=== PATIENT | male | born 1970 | race Hispanic/Latino ===

== ENCOUNTER 2021-06-06 02:04 | Emergency (ER) | payer BC ==
--- OUTSIDE RECORDS SUMMARY | 2021-06-06 02:07 | XMS REPORT | Continuity of Care Document ---
:1970 Author Organization [facility] t Address [address] [place] [address] Dr. Yo [address] [place] [id number] Care Team Providers Name Role Phone Unavailable Unavailable Unavailable Problems This patient has no known problems. Allergies, Adverse Reactions, Alerts This patient has no known allergies or adverse reactions. Medications This patient has no known medications. Procedures This patient has no known procedures. Results This patient has no known results.
[2021-06-06 02:52] LABS: Absolute Lymphocytes (CBC) 1.7 K/uL (0.7-4.9); Basophils % 0.6 % (0-1.3); Hematocrit 38.9 % (39.6-49.0); Lymphocytes % 27.8 % (15.3-44.8); MPV 9.5 fL (7.6-11.3); RBC Red Blood Cell Count 4.25 M/uL (4.33-5.43)
[2021-06-06 03:10] LABS: ALT/SGPT 39 U/L (12-78); AST/SGOT 19 U/L (15-37); Albumin 3.9 g/dL (3.4-5.0); Alkaline Phosphatase 67 U/L (45-117); BUN Blood Urea Nitrogen 18 mg/dL (7-18); Bicarbonate 28 mmol/L (21-32); Bilirubin Direct < 0.1 mg/dL (0-0.2); Bilirubin Total 0.4 mg/dL (0.2-1.0); Glucose Level 113 mg/dL (74-106); Lipase 130 U/L (73-393); Potassium 4.3 mmol/L (3.5-5.1); Protein, Total 7.7 g/dL (6.4-8.2); Sodium Level 143 mmol/L (136-145)
[2021-06-06] MEDS ORDERED: ONDANSETRON 4 MG/2 ML VIAL ONE (04:28)
[2021-06-06] MEDS ORDERED: MORPHINE 4 MG/ML SYR ONE (04:28)
[2021-06-06] MEDS ORDERED: NA CHLORIDE 0.9% 1,000 ML ONE (04:29)
--- NOTE | 2021-06-06 04:46 | EDPHYS ---
Physician Documentation [facility] Name: Kiko George Jr Age: 51 yrs Sex: Male : 1970 Arrival Date: 06/06/2021 Time: 02:08 Bed DX1 Private MD: ED Physician José Manuel Henderson HPI: 06/06 04:38 This 51 yrs old Male presents to ER via Ambulatory with complaints of pkl Epigastric Pain. 04:38 The patient presents with abdominal pain in the epigastric area, in the upper abdomen. pkl Onset: The symptoms/episode began/occurred just prior to arrival. The symptoms do not radiate. Associated signs and symptoms: none. The patient has not experienced similar symptoms in the past. Historical: - Allergies: 02:16 No Known Allergies; kg - Home Meds: 02:16 rosuvastatin 5 mg oral tab 1 tab once daily [Active]; kg - PMHx: 02:16 Hypercholesterolemia; kg - PSHx: 02:17 Appendectomy; kg - Immunization history:: Adult Immunizations not up to date, Client reports receiving the 2nd dose of the Covid vaccine, Date received: February 27, 2021 [facility] Client reports receiving the 1st dose of the Covid vaccine, February 05, 2021 [facility]. - Social history:: Smoking status: Patient denies any tobacco usage or history of. Patient uses alcohol, occasionally. ROS: 04:38 Eyes: Negative for injury, pain, redness, and discharge, ENT: Negative for injury, pkl pain, and discharge, Neck: Negative for injury, pain, and swelling, Cardiovascular: Negative for chest pain, palpitations, and edema, Respiratory: Negative for shortness of breath, cough, wheezing, and pleuritic chest pain. 04:38 Abdomen/GI: Positive for abdominal pain, of the epigastric area, right upper quadrant and left upper quadrant. 04:38 Back: Negative for acute changes. 04:38 : Negative for urinary symptoms. 04:38 MS/extremity: Negative for acute changes. 04:38 Skin: Negative for rash. 04:38 Neuro: Negative for altered mental status, loss of consciousness. Exam: 04:38 Head/Face: Normocephalic, atraumatic. Eyes: Pupils equal round and reactive to light, pkl extra-ocular motions intact. Lids and lashes normal. Conjunctiva and sclera are non-icteric and not injected. Cornea within normal limits. Periorbital areas with no swelling, redness, or edema. ENT: Nares patent. No nasal discharge, no septal abnormalities noted. Tympanic membranes are normal and external auditory canals are clear. Oropharynx with no redness, swelling, or masses, exudates, or evidence of obstruction, uvula midline. Mucous membranes moist. Neck: Trachea midline, no thyromegaly or masses palpated, and no cervical lymphadenopathy. Supple, full range of motion without nuchal rigidity, or vertebral point tenderness. No Meningismus. Chest/axilla: Normal chest wall appearance and motion. Nontender with no deformity. No lesions are appreciated. Cardiovascular: Regular rate and rhythm with a normal S1 and S2. No gallops, murmurs, or rubs. Normal PMI, no JVD. No pulse deficits. Respiratory: Lungs have equal breath sounds bilaterally, clear to auscultation and percussion. No rales, rhonchi or wheezes noted. No increased work of breathing, no retractions or nasal flaring. 04:38 Abdomen/GI: Bowel sounds: normal, Palpation: soft, mild abdominal tenderness, in the epigastric area, right upper quadrant and left upper quadrant. 04:38 Back: Exam negative for acute changes. 04:38 : Exam negative for acute changes. 04:38 Musculoskeletal/extremity: Exam is negative for acute changes. 04:38 Skin: Exam negative for rash. 04:38 Neuro: Orientation: is normal, Mentation: is normal, Cranial nerves: grossly normal, Motor: is normal. Vital Signs: 02:14 BP 150 / 89; Pulse 65; Resp 20; Temp 97.6(TE); Pulse Ox 99% on R/A; Weight 131.54 kg; kg Height 5 ft. 7 in. (170.18 cm); Pain 9/10; 05:04 BP 138 / 70; Pulse 60; Resp 19; Pulse Ox 98% ; ea 02:14 Body Mass Index 45.42 (131.54 kg, 170.18 cm) kg MDM: 03:48 Patient medically screened. pkl 04:38 Data reviewed: vital signs, nurses notes, lab test result(s), EKG, radiologic studies, pkl CT scan, ultrasound. ED course: Patient feeling better. Discussed lab, EKG and imaging studies patient. Advised to follow with Dr. Greer in 2 to 3 days. To return if necessary. Patient understood instruction. 06/06 02:11 Order name: Basic Metabolic Panel; Complete Time: 03:50 kg 06/06 02:11 Order name: CBC with Diff; Complete Time: 03:50 kg 06/06 02:11 Order name: Hepatic Function; Complete Time: 03:50 kg 06/06 02:11 Order name: Lipase; Complete Time: 03:50 kg 06/06 02:29 Order name: Troponin I; Complete Time: 03:50 kg 06/06 03:23 Order name: CREATININE WHOLE BLOOD; Complete Time: 03:50 EDMS 06/06 02:11 Order name: IV Saline Lock; Complete Time: 02:24 kg 06/06 02:11 Order name: Labs collected and sent; Complete Time: 02:24 kg 06/06 02:29 Order name: EKG - Nurse/Tech; Complete Time: 02:39 kg 06/06 02:29 Order name: CT Abd/Pelvis - IV Contrast Only kg 06/06 03:58 Order name: US Abdomen Limited pkl Administered Medications: 04:29 Drug: NS 0.9% 1000 ml Route: IV; Rate: 1000 ml; Site: right antecubital; ea 05:00 Follow up: Response: No adverse reaction; IV Status: Completed infusion; IV Intake: ea 1000ml 04:29 Drug: morphine 4 mg Route: IVP; Site: right antecubital; ea 05:00 Follow up: Response: No adverse reaction ea 04:29 Drug: Zofran (Ondansetron) 4 mg Route: IVP; Site: right antecubital; ea 05:00 Follow up: Response: No adverse reaction ea Disposition Summary: 06/06/21 04:45 Discharge Ordered Location: Home pkl Problem: new pkl Symptoms: have improved pkl Condition: Stable pkl Diagnosis - Cholelithiasis pkl Followup: pkl - With: Mian Tom MD - When: 2 - 3 days - Reason: Re-evaluation by your physician Discharge Instructions: - Discharge Summary Sheet pkl Forms: - Medication Reconciliation Form pkl - Thank You Letter pkl - Antibiotic Education pkl - Work release form pkl - Prescription Opioid Use pkl Prescriptions: - Cipro 500 mg Oral Tablet - take 1 tablet by ORAL route every 12 hours for 7 days; 14 tablet; Refills: 0, pkl Product Selection Permitted Signatures: Dispatcher [employer] José Manuel Rodriguez MD MD pkl Carlie Gan, RN RN Mae Cormier RN RN kg
--- NOTE | 2021-06-06 04:46 | ER ---
Nurse's Notes [facility] Name: Kiko George Jr Age: 51 yrs Sex: Male : 1970 Arrival Date: 06/06/2021 Time: 02:08 Bed DX1 Private MD: Diagnosis: Cholelithiasis Presentation: 06/06 02:14 Chief complaint: Patient states: Epigastric pain starting at 22:00. Coronavirus screen: kg Vaccine status: Patient reports receiving the 2nd dose of the covid vaccine. Date February 26, 2021 Patient reports receiving the 1st dose of the Covid vaccine. Date February 05, 2021. Ebola Screen: Patient negative for fever greater than or equal to 101.5 degrees Fahrenheit, and additional compatible Ebola Virus Disease symptoms Patient denies exposure to infectious person. Patient denies travel to an Ebola-affected area in the 21 days before illness onset. Initial Sepsis Screen: Does the patient meet any 2 criteria? No. Patient's initial sepsis screen is negative. Does the patient have a suspected source of infection? No. Patient's initial sepsis screen is negative. Risk Assessment: Do you want to hurt yourself or someone else? Patient reports no desire to harm self or others. Onset of symptoms was June 05, 2021 at 22:00. 02:14 Method Of Arrival: Ambulatory kg 02:14 Acuity: ESTELA 3 kg Historical: - Allergies: 02:16 No Known Allergies; kg - Home Meds: 02:16 rosuvastatin 5 mg oral tab 1 tab once daily [Active]; kg - PMHx: 02:16 Hypercholesterolemia; kg - PSHx: 02:17 Appendectomy; kg - Immunization history:: Adult Immunizations not up to date, Client reports receiving the 2nd dose of the Covid vaccine, Date received: February 27, 2021 Client reports receiving the 1st dose of the Covid vaccine, February 05, 2021. - Social history:: Smoking status: Patient denies any tobacco usage or history of. Patient uses alcohol, occasionally. Screenin:29 Abuse screen: Denies threats or abuse. Nutritional screening: No deficits noted. ea Tuberculosis screening: No symptoms or risk factors identified. Fall Risk None identified. Assessment: 04:30 General: Appears in no apparent distress. Behavior is appropriate for age. Pain: ea Complains of pain in epigastric area. Neuro: Level of Consciousness is awake, alert, obeys commands, Oriented to person, place, time. Cardiovascular: Patient's skin is warm and dry. Respiratory: Airway is patent Respiratory effort is even, unlabored, Respiratory pattern is regular, symmetrical. Derm: Skin is pink, warm \T\ dry. 05:02 Reassessment: Patient and/or family updated on plan of care and expected duration. Pain ea level reassessed. Patient is alert, oriented x 3, equal unlabored respirations, skin warm/dry/pink. Discharge instruction given to patient verbalized the understanding of instruction. Pt left ED ambulatory tolerating well . Vital Signs: 02:14 BP 150 / 89; Pulse 65; Resp 20; Temp 97.6(TE); Pulse Ox 99% on R/A; Weight 131.54 kg; kg Height 5 ft. 7 in. (170.18 cm); Pain 9/10; 05:04 BP 138 / 70; Pulse 60; Resp 19; Pulse Ox 98% ; ea 02:14 Body Mass Index 45.42 (131.54 kg, 170.18 cm) kg ED Course: 02:08 Patient arrived in ED. wm 02:16 Triage completed. kg 02:24 Basic Metabolic Panel Sent. kg 02:24 CBC with Diff Sent. kg 02:24 Hepatic Function Sent. kg 02:24 Lipase Sent. kg 03:02 CT Abd/Pelvis - IV Contrast Only In Process Unspecified. EDMS 03:48 José Manuel Henderson MD is Attending Physician. pkl 04:02 Carlie Gan RN is Primary Nurse. ea 04:29 US Abdomen Limited In Process Unspecified. EDMS 04:29 Patient has correct armband on for positive identification. Bed in low position. Call ea light in reach. Side rails up X2. 04:29 Arm band placed on right wrist. Patient placed in an exam room, on a stretcher, on ea pulse oximetry. 04:45 Mian Tom MD is Referral Physician. pkl 05:02 No provider procedures requiring assistance completed. IV discontinued, intact, ea bleeding controlled, No redness/swelling at site. Pressure dressing applied. Administered Medications: 04:29 Drug: NS 0.9% 1000 ml Route: IV; Rate: 1000 ml; Site: right antecubital; ea 05:00 Follow up: Response: No adverse reaction; IV Status: Completed infusion; IV Intake: ea 1000ml 04:29 Drug: morphine 4 mg Route: IVP; Site: right antecubital; ea 05:00 Follow up: Response: No adverse reaction ea 04:29 Drug: Zofran (Ondansetron) 4 mg Route: IVP; Site: right antecubital; ea 05:00 Follow up: Response: No adverse reaction ea Intake: 05:00 IV: 1000ml; Total: 1000ml. ea Outcome: 04:45 Discharge ordered by . alber[place] 05:02 Discharged to home ambulatory, with family. ea 05:02 Condition: stable 05:02 Discharge instructions given to patient, Instructed on discharge instructions, follow up and referral plans. medication usage, Demonstrated understanding of instructions, follow-up care, medications. 05:04 Patient left the ED. ea Signatures: Dispatcher [employer] EDMS José Manuel Henderson MD MD pkl Antunez, Elena, RN RN ea Graham, Kristen, RN RN kg Marsh, Wendy
[2021-06-06 05:09] VITALS: BP 150/89; TEMP 97.6; O2SAT 99
--- NOTE | 2021-06-06 07:27 | RAD REPORT ---
EXAM DESCRIPTION: US - Abdomen Exam Limited - 06/06/2021 4:28 am CLINICAL HISTORY: ABD PAIN COMPARISON: Abdomen Pelvis W Contrast dated 06/06/2021 FINDINGS: The gallbladder demonstrates a gallstone near the gallbladder neck. No pericholecystic flu id or gallbladder wall thickening. The common bile duct is mildly dilated at 7 millimeter. No biliary ductal dilatation is seen on the same-day CT. The liver demonstrates no findings of intrahepatic biliary dilatation. IMPRESSION: Cholelithiasis without sonographic evidence of acute cholecystitis.
--- NOTE | 2021-06-06 10:55 | EKG ---
Test Date: 2021-06-06 Test Time: 02:34:45 Pattern Chain Builder: DOMINGO MEASUREMENT RESULTS: Intervals: Rate: 68 [place]: 174 QRSD: 106 QT: 400 QTc: 425 [place]: P: 14 [place]: 174 QRS: 22 T: 17 INTERPRETIVE STATEMENTS: Normal sinus rhythm Minimal voltage criteria for LVH, may be normal variant Borderline ECG No previous ECG available for comparison Electronically Signed On 06-06-21 10:53:31 CDT by Taurus Cat
--- NOTE | 2021-06-06 12:13 | RAD REPORT ---
EXAM DESCRIPTION: CT - Abdomen Pelvis W Contrast - 06/06/2021 6:14 am CLINICAL HISTORY: ABD PAIN TECHNIQUE: Axial computed tomography images of the abdomen and pelvis with intravenous contrast. S agittal and coronal reformatted images were created and reviewed. This CT exam was performed using one or more of the following dose reduction techniques: automated exposure control, adjustment of t he mA and/or kV according to patient size, and/or use of iterative reconstruction technique. COMPARISON: No relevant prior studies available. FINDINGS: Lung bases: Unremarkable. No mass. No consolidation. ABDOMEN: Liver: Unremarkable. No mass. Gallbladder and bile ducts: 2.5 cm gallstone in the region of the gallbladder neck. The gallbladder wall appears top normal in thickness. Subtle infiltrative changes in the pericholecystic fat. No d uctal dilation. Pancreas: Unremarkable. No mass. No ductal dilation. Spleen: Unremarkable. No splenomegaly. Adrenals: 1.7 x 1.5 x 1.5 cm homogeneous left adrenal nodule. The right adrenal gland is unremarkab le. Kidneys and ureters: 1.4 cm cortical cyst at the mid to lower pole of the right kidney. No follow-u p imaging is necessary. No calculi. No hydronephrosis. Stomach and bowel: Air-fluid levels throughout the large bowel. No mucosal thickening. No obstruc tion. PELVIS: Appendix: Pericecal surgical clips suggestive of prior appendectomy. Bladder: Unremarkable. No mass. Reproductive: Unremarkable as visualized. ABDOMEN and PELVIS: Intraperitoneal space: Unremarkable. No free air. No significant fluid collection. Bones/joints: Multilevel spondylosis. No acute fracture. No dislocation. Soft tissues: Small fat-containing umbilical hernia. Vasculature: Unremarkable. No abdominal aortic aneurysm. Lymph nodes: Unremarkable. No enlarged lymph nodes. IMPRESSION: 1. Cholelithiasis. The gallbladder wall appears top normal in thickness with subtle in filtrative changes in the pericholecystic fat. Please correlate clinically for the possibility of ear ly acute cholecystitis. 2. Nonspecific air-fluid levels present within the large bowel. This can be seen in the clinical se tting of diarrhea. 3. 1.7 cm indeterminate left adrenal nodule. Probable benign adenoma. Recommend 1 year follow up ad renal washout CT. If stable = 1 year, no further follow-up imaging. Note: This recommendation does no t apply to patients younger than 18 years, patients with cancer, and patients with any clinical suspi cion of a functioning adrenal lesion. References: JACR 2017 Apr; 14(8):1038-44, JCAT 2016 Nov-Dec; 40 (2):194-200. 4. Other findings as above. Electronically signed by: Ulisses Adame MD 06/06/2021 3:29 AM CDT Due to temporary technical issues with the PACS/Fluency reporting system, reports are being signed by the in house radiologist without review as a courtesy to ensure prompt reporting. The interpreting r adiologist is fully responsible for the content of the report.
== END 2021-06-06 05:04 | disposition home or self-care (01) ==
LOC: ER 02:04
DX: K80.20 Calculus of gallbladder without cholecystitis without obstruction (principal); E78.00 Pure hypercholesterolemia, unspecified
CPT/HCPCS: 96361; 93005; 85025; 80048; 36415; 82565; 80076; 84484; 83690; 74177; 76705; 96375; 96374; 99284; Q9967; J7030; J2405